=== PATIENT | male | born 1985 | race Caucasian/White ===

== ENCOUNTER 2016-07-20 09:31 | Emergency (ER) | payer OTHER ==
[2016-07-20 09:39] VITALS: RESP 18
--- NOTE | 2016-07-20 10:06 | ED ---
General Adult HPI - General Chief complaint: Overdose Stated complaint: poss overdose Time Seen by Provider: 07/20/16 09:50 Source: patient, EMS, RN notes reviewed Mode of arrival: EMS Limitations: no limitations - History of Present Illness Initial comments: 30-year-old male present emergency department via EMS from urgent care. Patient was sent over here for evaluation for possible as all overdose on over- the-counter medications or possible coating of overdose. Patient states that he 's been sick over the last few days taken multiple [id number] medications in which she states that it is maximum strength cold and flu foot is unsure what brand. Patient states he may have been taking prescription medications studies also not sure. Patient states he has a history of asthma does take medications for that. Patient states she's had sinus congestion, low-grade fever and cough. Patient states he does feel foggy and just feels off at this time. Patient denies illicit drug use. Patient denies any intention to harm himself or harm any other people at this time. Patient denies any alcohol use. - Related Data Home Medications Medication Instructions Recorded Confirmed Cold & Flu Liquid (Unknown) 1 dose PO Q4H PRN 07/20/16 07/20/16 Nasal [place] (Unknown) 1 spray EA NOSTRIL DAILY PRN 07/20/16 07/20/16 Allergies Allergy/AdvReac Type Severity Reaction Status Date / Time No Known Allergies Allergy Verified 07/20/16 10:28 Review of Systems ROS Statement: Those systems with pertinent positive or pertinent negative responses have been documented in the HPI. ROS Other: All systems not noted in ROS Statement are negative. Past Medical History Past Medical History: No Reported History History of Any Multi-Drug Resistant Organisms: None Reported Past Surgical History: No Surgical Hx Reported, Orthopedic Surgery Past Psychological History: ADD/ADHD Smoking Status: Current every day smoker Past Alcohol Use History: Occasional Past Drug Use History: None Reported General Exam Limitations: no limitations General appearance: alert, in no apparent distress Head exam: Present: atraumatic, normocephalic, normal inspection Eye exam: Present: normal appearance, PERRL, EOMI. Absent: scleral icterus, conjunctival injection, periorbital swelling ENT exam: Present: normal exam, normal oropharynx, mucous membranes moist, TM's normal bilaterally, normal external ear exam Neck exam: Present: normal inspection, full ROM. Absent: tenderness, meningismus, lymphadenopathy Respiratory exam: Present: normal lung sounds bilaterally. Absent: respiratory distress, wheezes, rales, rhonchi, stridor Cardiovascular Exam: Present: regular rate, normal rhythm, normal heart sounds. Absent: systolic murmur, diastolic murmur, rubs, gallop, clicks GI/Abdominal exam: Present: soft, normal bowel sounds. Absent: distended, tenderness, guarding, rebound, rigid Neurological exam: Present: alert, oriented X3, CN II-XII intact Skin exam: Present: warm, dry, intact, normal color. Absent: rash Course Vital Signs 07/20/16 09:34 Temperature 98.0 F Pulse Rate 95 Respiratory 18 Rate Blood Pressure 134/81 O2 Sat by Pulse 95 Oximetry EKG Findings - EKG Comments: EKG Findings:: EKG performed at 9:44 normal sinus rhythm with a rate of 94, MT interval 142, QRS duration 76, QT/QTC 336/420 Medical Decision Making - Medical Decision Making 30-year-old male presented for possible medication overdose. Patient lab work within the last. Patient did test positive for influenza A and methamphetamines on his urine drug screen. Patient denies any illicit drug use. Patient is awake alert and oriented 3. Patient does have a runny. Patient is able to family difficulty. Patient will be discharged. Patient's is advised to increase his fluid intake and to [id number] medication use at this time other then acetaminophen ibuprofen as directed. - Lab Data Result diagrams: 07/20/16 09:46 07/20/16 09:46 Lab Results 07/20/16 07/20/16 07/20/16 Range/Units 09:46 09:46 09:46 WBC 6.6 (3.8-10.6) k/uL RBC 5.48 (4.30-5.90) m/uL Hgb 16.4 (13.0-17.5) gm/dL Hct 48.4 (39.0-53.0) % MCV 88.3 (80.0-100.0) fL MCH 29.8 (25.0-35.0) pg MCHC 33.8 (31.0-37.0) g/dL RDW 13.0 (11.5-15.5) % Plt Count 143 L (150-450) k/uL Neutrophils % 73 % Lymphocytes % 15 % Monocytes % 9 % Eosinophils % 1 % Basophils % 0 % Neutrophils # 4.8 (1.3-7.7) k/uL Lymphocytes # 1.0 (1.0-4.8) k/uL Monocytes # 0.6 (0-1.0) k/uL Eosinophils # 0.0 (0-0.7) k/uL Basophils # 0.0 (0-0.2) k/uL PT 11.4 (9.0-12.0) sec INR 1.1 (<1.1) APTT 29.2 (22.0-30.0) sec Sodium 142 (137-145) mmol/L Potassium 3.8 (3.5-5.1) mmol/L Chloride 106 (98-107) mmol/L Carbon Dioxide 25 (22-30) mmol/L Anion Gap 11 mmol/L BUN 8 L (9-20) mg/dL Creatinine 0.82 (0.66-1.25) mg/dL Est GFR (MDRD) Af Amer >60 (>60 ml/min/1.73 sqM) Est GFR (MDRD) Non-Af >60 (>60 ml/min/1.73 sqM) Glucose 102 H (74-99) mg/dL Calcium 9.4 (8.4-10.2) mg/dL Magnesium 1.8 (1.6-2.3) mg/dL Total Bilirubin 0.5 (0.2-1.3) mg/dL AST 29 (17-59) U/L ALT 60 (21-72) U/L Alkaline Phosphatase 77 (38-126) U/L Creatine Kinase 166 (55-170) U/L Total Protein 7.0 (6.3-8.2) g/dL Albumin 4.3 (3.5-5.0) g/dL Urine Opiates Screen (NotDetected) Ur Oxycodone Screen (NotDetected) Urine Methadone Screen (NotDetected) Ur Propoxyphene Screen (NotDetected) Acetaminophen <10.0 ug/mL Ur Barbiturates Screen (NotDetected) U Tricyclic Antidepress (NotDetected) Ur Phencyclidine Scrn (NotDetected) Ur Amphetamines Screen (NotDetected) U Methamphetamines Scrn (NotDetected) U Benzodiazepines Scrn (NotDetected) Urine Cocaine Screen (NotDetected) U Marijuana (THC) Screen (NotDetected) Serum Alcohol <10 mg/dL Influenza Type A RNA (Not Detectd) Influenza Type B (PCR) (Not Detectd) 07/20/16 07/20/16 Range/Units 10:05 11:45 WBC (3.8-10.6) k/uL RBC (4.30-5.90) m/uL Hgb (13.0-17.5) gm/dL Hct (39.0-53.0) % MCV (80.0-100.0) fL MCH (25.0-35.0) pg MCHC (31.0-37.0) g/dL RDW (11.5-15.5) % Plt Count (150-450) k/uL Neutrophils % % Lymphocytes % % Monocytes % % Eosinophils % % Basophils % % Neutrophils # (1.3-7.7) k/uL Lymphocytes # (1.0-4.8) k/uL Monocytes # (0-1.0) k/uL Eosinophils # (0-0.7) k/uL Basophils # (0-0.2) k/uL PT (9.0-12.0) sec INR (<1.1) APTT (22.0-30.0) sec Sodium (137-145) mmol/L Potassium (3.5-5.1) mmol/L Chloride (98-107) mmol/L Carbon Dioxide (22-30) mmol/L Anion Gap mmol/L BUN (9-20) mg/dL Creatinine (0.66-1.25) mg/dL Est GFR (MDRD) Af Amer (>60 ml/min/1.73 sqM) Est GFR (MDRD) Non-Af (>60 ml/min/1.73 sqM) Glucose (74-99) mg/dL Calcium (8.4-10.2) mg/dL Magnesium (1.6-2.3) mg/dL Total Bilirubin (0.2-1.3) mg/dL AST (17-59) U/L ALT (21-72) U/L Alkaline Phosphatase (38-126) U/L Creatine Kinase (55-170) U/L Total Protein (6.3-8.2) g/dL Albumin (3.5-5.0) g/dL Urine Opiates Screen Not Detected (NotDetected) Ur Oxycodone Screen Not Detected (NotDetected) Urine Methadone Screen Not Detected (NotDetected) Ur Propoxyphene Screen Not Detected (NotDetected) Acetaminophen ug/mL Ur Barbiturates Screen Not Detected (NotDetected) U Tricyclic Antidepress Not Detected (NotDetected) Ur Phencyclidine Scrn Not Detected (NotDetected) Ur Amphetamines Screen Not Detected (NotDetected) U Methamphetamines Scrn Detected H (NotDetected) U Benzodiazepines Scrn Not Detected (NotDetected) Urine Cocaine Screen Not Detected (NotDetected) U Marijuana (THC) Screen Not Detected (NotDetected) Serum Alcohol mg/dL Influenza Type A RNA Detected A (Not Detectd) Influenza Type B (PCR) Not Detected (Not Detectd) Disposition Clinical Impression: Influenza A, Methamphetamine use Disposition: HOME SELF-CARE Condition: Stable Instructions: Influenza (ED) Additional Instructions: Please return to the Emergency Department if symptoms worsen or any other concerns. Time of Disposition: 12:40
[2016-07-20 10:15] LABS: Basophils % (A) 0 %; CH 30.7; CHCM 34.9; Eosinophils % (A) 1 %; HCT 48.4 % (39.0-53.0); HDW 2.28; HGB 16.4 gm/dL (13.0-17.5); Luc # (Auto) 0.14; Luc % (Auto) 2; Lymphocytes % (A) 15 %; MCH 29.8 pg (25.0-35.0); MCHC 33.8 g/dL (31.0-37.0); MCV 88.3 fL (80.0-100.0); Mean Platelet Volume 7.6; Monocytes # (A) 0.6 k/uL (0-1.0); Monocytes % (A) 9 %; Neutrophils # (A) 4.8 k/uL (1.3-7.7); Neutrophils % (A) 73 %; RBC 5.48 m/uL (4.30-5.90); WBC 6.6 k/uL (3.8-10.6); WBC (Perox) 6.94
--- NOTE | 2016-07-20 10:26 | XR ---
EXAMINATION TYPE: XR chest 2V DATE OF EXAM: 07/20/2016 10:21 AM COMPARISON: NONE HISTORY: Chest congestion and cough. TECHNIQUE: Frontal and lateral views of the chest are obtained. FINDINGS: There is central perihilar peribronchial cuffing. There is no suspicious peripheral focal air space opacity, pleural effusion, or pneumothorax seen. The cardiac silhouette size is within nor mal limits. The osseous structures are intact. IMPRESSION: Central perihilar peribronchial cuffing is consistent with reactive airway disease possi elly from a viral bronchiolitis.
[2016-07-20 10:34] LABS: INR 1.1 (<1.1); Partial Thromboplastin Time 29.2 sec (22.0-30.0); Prothrombin Time 11.4 sec (9.0-12.0)
[2016-07-20 10:47] LABS: ALT 60 U/L (21-72); AST 29 U/L (17-59); Acetaminophen <10.0 ug/mL; Alcohol <10 mg/dL; Alkaline Phosphatase 77 U/L (38-126); Anion Gap 11 mmol/L; Blood Urea Nitrogen 8 mg/dL (9-20); Calcium 9.4 mg/dL (8.4-10.2); Carbon Dioxide 25 mmol/L (22-30); Chloride 106 mmol/L (98-107); Creatine Kinase 166 U/L (55-170); Glucose 102 mg/dL (74-99); Magnesium 1.8 mg/dL (1.6-2.3); Non-African American GFR(MDRD) >60 (>60 ml/min/1.73 sqM); Potassium 3.8 mmol/L (3.5-5.1); Sodium 142 mmol/L (137-145); Total Bilirubin 0.5 mg/dL (0.2-1.3)
[2016-07-20 13:01] VITALS: BP 132/69; PULSE 79; TEMP 98.4
== END 2016-07-20 13:00 | disposition home or self-care (01) ==
LOC: EC 09:31
DX: J11.1 Influenza due to unidentified influenza virus with other respiratory manifestations (principal); F15.90 Other stimulant use, unspecified, uncomplicated; F17.200 Nicotine dependence, unspecified, uncomplicated
CPT/HCPCS: 36415; 71020; 80053; 80306; 80320; 82550; 83520; 83735; 85025; 85610; 85730; 87502; 93005; 99285

== ENCOUNTER 2016-08-08 13:35 | Inpatient (IN) | payer MEDICAID, OTHER ==
--- NOTE | 2016-08-08 13:58 | ED ---
General Adult HPI - General Chief complaint: Psychiatric Symptoms Stated complaint: Mental Health Eval Time Seen by Provider: 08/08/16 13:41 Source: patient, RN notes reviewed, old records reviewed Mode of arrival: ambulatory Limitations: no limitations - History of Present Illness Initial comments: This is a 30-year-old male the ER for evaluation. This patient presents for evaluation of a couple psychiatric complaints, hearing voices today and that is in his ears. Patient has history of psychiatric illness, and has had disagreements with different counselors and psychiatrist he has seen. Patient is currently off all psychiatric medications nonstructural call. Patient does function is slightly recent has a job and has been going well for him. Patient denies thoughts of homicide or suicide - Related Data Home Medications Medication Instructions Recorded Confirmed No Known Home Medications [No 08/08/16 08/08/16 Known Home Medications] Allergies Allergy/AdvReac Type Severity Reaction Status Date / Time No Known Allergies Allergy Verified 08/08/16 13:49 Review of Systems ROS Statement: Those systems with pertinent positive or pertinent negative responses have been documented in the HPI. ROS Other: All systems not noted in ROS Statement are negative. Past Medical History Past Medical History: No Reported History History of Any Multi-Drug Resistant Organisms: None Reported Past Surgical History: No Surgical Hx Reported, Orthopedic Surgery Past Psychological History: ADD/ADHD Smoking Status: Current every day smoker Past Alcohol Use History: Occasional Past Drug Use History: None Reported General Exam Limitations: no limitations General appearance: alert, in no apparent distress, anxious Head exam: Present: atraumatic, normocephalic, normal inspection Eye exam: Present: normal appearance, PERRL, EOMI. Absent: scleral icterus, conjunctival injection, periorbital swelling ENT exam: Present: normal exam, mucous membranes moist Neck exam: Present: normal inspection. Absent: tenderness, meningismus, lymphadenopathy Respiratory exam: Present: normal lung sounds bilaterally. Absent: respiratory distress, wheezes, rales, rhonchi, stridor Cardiovascular Exam: Present: regular rate, normal rhythm, normal heart sounds. Absent: systolic murmur, diastolic murmur, rubs, gallop, clicks GI/Abdominal exam: Present: soft, normal bowel sounds. Absent: distended, tenderness, guarding, rebound, rigid Extremities exam: Present: normal inspection, full ROM, normal capillary refill. Absent: tenderness, pedal edema, joint swelling, calf tenderness Back exam: Present: normal inspection Neurological exam: Present: alert, oriented X3, CN II-XII intact Psychiatric exam: Present: normal affect, normal mood Skin exam: Present: warm, dry, intact, normal color. Absent: rash Course Vital Signs 08/08/16 13:37 Temperature 98.0 F Pulse Rate 84 Respiratory 20 Rate Blood Pressure 150/73 O2 Sat by Pulse 98 Oximetry - Reevaluation(s) Reevaluation #1: 08/08/16 13:58 medically clear, will have psychiatric evaluation Medical Decision Making - Medical Decision Making 30 male seen and evaluated by psychiatry, psychiatry believes patient is acutely schizophrenic, voices are telling him to hurt himself and others. Patient will be admitted for psychiatric evaluation and treatment Disposition Clinical Impression: Chronic schizophrenia Disposition: TRANSFER TO PSYCH HOSP/UNIT Condition: Good Referrals: Young Fleming MD [Primary Care Provider] - 1-2 days
[2016-08-08] MEDS ORDERED: LORazepam 2 MG/ML SYRINGE IM PRN (16:44)
[2016-08-08] MEDS ORDERED: LORazepam 1 MG TAB PO PRN (16:44)
[2016-08-08] MEDS ORDERED: MAGNESIUM HYDROXIDE 2,400 MG/10 ML CUP PO PRN (16:52)
[2016-08-08] MEDS ORDERED: MAG HYDROX/AL HYDROX/SIMETH 30 ML CUP PO PRN (16:53)
[2016-08-08] MEDS ORDERED: ZIPRASIDONE 20 MG VIAL IM PRN (16:55)
[2016-08-08] MEDS: NICOTINE 14MG/24HR PATCH TRANSDERM SCH (17:39)
[2016-08-09 00:12] LABS: Amorphous Sediment,Urine Rare /hpf; Appearance,Urine Cloudy (Clear); Bilirubin,Urine Negative (Negative); Glucose,Urine (UA) Negative (Negative); Ketones,Urine Negative (Negative); Leukocyte Esterase,Urine Negative (Negative); Nitrite,Urine Negative (Negative); Particle Count 34416; Protein,Urine Negative (Negative); Specific Gravity,Urine 1.011 (1.001-1.035); UA Billing (MACRO vs. MICRO) MICRO; Urobilinogen,Urine <2.0 mg/dL (<2.0)
[2016-08-09] MEDS: NICOTINE 14MG/24HR PATCH TRANSDERM SCH (09:38)
--- NOTE | 2016-08-09 17:58 | HP ---
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 Patient presented to the mental health unit through the emergency room with a petition for psychosis. HISTORY OF PRESENT ILLNESS: Patient stated that he has been struggling with trouble sleeping at night, has been having frequent anger outbursts for the last 2 years, does believe that "the government is watching me and harassing me for no reason." He stated that he has been hearing noises in his ears like "just ringing in my ears, but it is constant." Patient was brought with a petition completed by his mother, Katy Shen. According to the allegation on the petition, she stated that the patient has psychiatric illness and he was at [facility] and discharged on Seroquel, but he stopped his psychotropic medication. He has been refusing to go to see a counselor or psychiatrist; he has been having a lot of anger outbursts; he has thrown a dresser around his room. He did make a couple of statements saying that he would kill himself and get over it. She stated that he has been not sleeping for a couple of weeks. The voices have been making him angry and acting in very aggressive ways. A couple of days he kicked out a window with his foot and he punched a mirror causing an injury requiring 4 or 5 stitches in his right hand. He bought a ticket to go to [place], and when he went there he did not have any plan and little money. He does not believe that he needs to be on any psych medication. When I asked the patient about his medication, he did admit that he has a lot of anger outbursts, and it has been getting worse for the last 2 months because "everywhere I go the [employer] is just watching me." Patient stated that he is frustrated also because he has been not able to maintain any job for the last year. He did move from one job to another; he had at least 4 or 5 different jobs over the last year. Patient endorses poor sleep, poor appetite. He denied any current suicidal ideation, but he was very preoccupied and seemed to be responding to internal stimuli. PAST PSYCHIATRIC HISTORY: Two years ago he was admitted at [facility] for 10 days; it was court-ordered, according to him, because "I was hearing a lot of voices and they put me on Seroquel." Patient stated that he does not believe to be on any psych medication and he decided to stop the Seroquel. He did go to a couple of sessions for counseling, but he got into an argument with them because "I don't believe I am incompetent or mentally it." PAST SUICIDAL ATTEMPT: He denied any past suicidal attempt; however, he did admit that recently he injured his right wrist and it did require a couple of stitches, as he hit the mirror and he injured himself. FAMILY HISTORY OF PSYCHIATRIC ILLNESS: Patient is not aware of any mental illness in the family. MEDICAL HISTORY: There is no acute medical problem. ALLERGIES: THERE IS NO KNOWN ALLERGY. HOME MEDICATIONS: None. VITAL SIGNS AT THE TIME OF THE ADMISSION: Temperature 98.0, pulse rate 84, respiration 20, blood pressure 150/73. Urine analysis is negative for bacteria. It is cloudy, but it is negative for leukocyte esterase. SOCIAL HISTORY: Patient has a younger sister. He stated that he was in private school until 9th grade because "I was diagnosed with ADD and I was on stimulants." Then he was moved from private school to public school, and he stated he did have difficulty adjusting to public school. 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 He has never been in a relationship except a very brief relationship at age 22 or 23. As I mentioned before, it seems that he never has been able to maintain any job for more than a couple of months. He has been living with his parent. He denied any history of physical or sexual abuse. He has been spending most of his time playing video games or fishing on his own. There is no friendship, no social life. MENTAL STATUS EXAMINATION: Patient is a male who appears his stated age. He is dressed in his own clothing. Hygiene and grooming are adequate. Poor eye contact. He was looking to the wall. A lot of halting and blocking. It seemed he was responding to internal cues. Thought process is tangential. He endorses a lot of persecutory delusions, hearing voices, but there is no command in nature. He reports no suicidal or homicidal ideation, but he did admit that he has anger outbursts and he recently injured his right hand. Affect is constricted. He does not appear manic or hypomanic, but he appears severely psychotic with insight and judgment totally impaired. COGNITIVE FUNCTION: Patient was not able to participate in the mini-mental status due to psychotic features. INTELLECTUAL FUNCTION: Average. STRENGTHS: Patient has a very good support system. WEAKNESSES: Chronic mental illness and poor compliance with medication, with no insight for the need for treatment. IMPRESSION: 1. Schizoaffective disorder; rule out schizophrenia, paranoid type. 2. History of attention deficit disorder. 3. Cluster C personality disorder. 4. Psychosocial dysfunction due to psychosis and poor compliance with medication. PLAN: The patient was admitted to the mental health unit. I will complete a clinical certificate. I recommend inpatient and outpatient treatment to be sure that he will be compliant with medication. I will start him on Invega oral and will titrate it to eliminate all the psychotic features. After court hearing I will switch it to Invega injection. Patient will participate in group therapy, activity therapy as tolerated. Will request a routine medical consultation. Social Work will meet with the patient to complete a psychosocial assessment and to discuss post-discharge planning. Length of stay 5 to 7 days. MTDD
--- NOTE | 2016-08-09 18:58 | CONS ---
DATE OF CONSULTATION: CHIEF COMPLAINT: Acute psychosis. HISTORY OF PRESENT ILLNESS: This gentleman was brought into the hospital after he apparently felt symptoms of fitz. It is not clear as to exactly what happened. As far as history can be obtained, he is not on any medication. REVIEW OF SYSTEMS: He denies any headaches, chest pain, shortness of breath, abdominal pain, vomiting, diarrhea, jaundice, hepatitis, renal disease, diabetes, etc. Past medical history, family history, personal and social histories are unremarkable and noncontributory otherwise. ALLERGIES: He is NOT ALLERGIC TO ANY MEDICATION. He is not taking any medication that we are aware of. PHYSICAL EXAMINATION: Blood pressure 148/88, pulse 60, respiratory rate 16. He is afebrile. In general he appeared to be in no acute distress. Skin color is normal. Skin is warm and dry. Lymph nodes are not enlarged. Head, ears, eyes, nose, mouth and throat were normal. Neck veins were not distended. Thyroid is not enlarged. Chest is clear. Cardiac exam is normal. The abdomen is soft and nontender. Extremities are normal. Neurologically he seems to be intact. IMPRESSION: 1. Acute psychosis. 2. Nicotine abuse. RECOMMENDATIONS: None.
[2016-08-09] MEDS: PALIPERIDONE 6 MG TAB.ER.24 PO SCH (21:37)
[2016-08-10] MEDS: NICOTINE 14MG/24HR PATCH TRANSDERM SCH (09:11)
--- NOTE | 2016-08-10 09:54 | P.PN ---
Progress Note - Text Interval history: The patient was seen for follow-up ,guarded ,evasive , most of his answers are "YES ,NO or not really ",seems responding to internal cues , denies any sleeping or appetite problems ,stated that he does not need any medication because "I AM NOT INSANE" ACCORDING TO NURSING STAFF :patient refused ti take his Invega ,no insight to his illness ,please refer to nurse note: ""pt given a copy of the 2nd cert. pt told that if he had any questions to come and talk with staff. tech came up and stated," Pt said that someone just came in and placed it on his bed." Dresser Tender went out and pt was standing in the hallway and pt was told that telegraphic typewriter mechanic was the one that handed pt the copy of the 2nd cert. pt stated that he did not agree with the cert about he is schizophrenic and paranoid. pt was then asked if he hears voices and pt stated, " You just want me to live with my mom the rest of my life!" telegraphic typewriter mechanic asked pt if he see electricity. pt then stated," Yeah, I don't like how I am being shocked down there, I have done nothing to anyone." pt asked about that comment and pt threw his arms up in the air and stated as he was walking away," Your insane." Initialized on 08/09/16 16:01 - END OF NOTE Mental status exam: The patient is alert he seated calmly. He is wearing same clothing ,poor grooming ,avoiding eyes contact ,speech is non spontaneous ,one word answer ,responding to internal stimuli ,halting and blocking ,suspicious , paranoia,denies any suicidal or homicidal ideation ,insight and judgment impaired Plan: Waiting for court hearing to start medication. We will continue to monitor him for safety and encourage his participation in the milieu and provide reality orientation when possible. Vital signs reviewed.
[2016-08-10] MEDS: PALIPERIDONE 6 MG TAB.ER.24 PO SCH (20:12)
[2016-08-11] MEDS: NICOTINE 14MG/24HR PATCH TRANSDERM SCH (08:24)
--- NOTE | 2016-08-11 08:53 | P.PN ---
Progress Note - Text Interval history: The patient was seen for follow-up ,guarded ,evasive ,brought court paper with him and stated that he does not agree that I am not schizophrenic ,I do not need any psychotropic medication "then started talking about being watched by government and "There is camera all over this place , extra electricity damaging my brain ",then started talking about having flu- like symptoms:IYER ,ears aches and congestion ,somatic preoccupied PER NURSING STAFF: Refusing his Invega ,slept 6 hours,participating in groups Vitals signs :WNL Mental status exam: The patient is alert he seated calmly. He is wearing same clothing ,poor grooming ,avoiding eyes contact ,speech is non spontaneous, responding to internal stimuli ,halting and blocking ,suspicious ,paranoia, denies any suicidal or homicidal ideation ,insight and judgment impaired Plan: Waiting for court hearing to start medication. We will continue to monitor him for safety and encourage his participation in the milieu and provide reality orientation when possible.
[2016-08-11] MEDS: LORATADINE-PSEUDOEPH 5-120 MG 1 EACH TAB.ER.12H PO PRN (10:45)
[2016-08-11 11:05] LABS: Basophils % (A) 0 %; CH 30.3; CHCM 33.7; Eosinophils % (A) 1 %; HCT 51.2 % (39.0-53.0); HDW 2.38; HGB 16.3 gm/dL (13.0-17.5); Luc # (Auto) 0.13; Luc % (Auto) 2; Lymphocytes # (A) 1.9 k/uL (1.0-4.8); Lymphocytes % (A) 31 %; MCH 28.7 pg (25.0-35.0); MCHC 31.9 g/dL (31.0-37.0); MCV 90.1 fL (80.0-100.0); Mean Platelet Volume 7.6; Monocytes # (A) 0.3 k/uL (0-1.0); Monocytes % (A) 5 %; Neutrophils # (A) 3.8 k/uL (1.3-7.7); Neutrophils % (A) 62 %; RBC 5.69 m/uL (4.30-5.90); WBC 6.1 k/uL (3.8-10.6)
[2016-08-11] MEDS: PALIPERIDONE 6 MG TAB.ER.24 PO SCH (21:19)
[2016-08-11] MEDS: ACETAMINOPHEN TAB 325 MG TAB PO PRN (21:21)
[2016-08-12] MEDS: NICOTINE 14MG/24HR PATCH TRANSDERM SCH (08:26)
[2016-08-12] MEDS: LORATADINE-PSEUDOEPH 5-120 MG 1 EACH TAB.ER.12H PO PRN (10:49)
[2016-08-12] MEDS: ACETAMINOPHEN TAB 325 MG TAB PO PRN (10:49)
--- NOTE | 2016-08-12 16:33 | P.PN ---
Progress Note - Text SUBJECTIVE: I reviewed the medical record and interviewed Mr. Cosme. He is a 30 -year-old male who has history of schizophrenia. He presented to the unit involuntarily with increasing psychotic symptoms. He expressed his desire to "go home". He denied the need for inpatient treatment or treatment, as he puts it, "psychedelic medications." He understands that he has a probate hearing for involuntary hospitalization on 08/16/2015. He denied feeling frightened or scared. He admitted to "occasionally hearing voices." He talked about feeling as though he were and "i-robot" where his thoughts are controlled and broadcasted. He denied problems with sleep or appetite. He declined my recommendation for an antipsychotic medication. She complains of past side effects to antipsychotics including sedation. OBJECTIVE: He presented as a casually groomed 30-year-old male who was pleasant on approach. He was sitting comfortably that he had his bed in a dark room. He appeared guarded and internally preoccupied. He maintained eye contact and appeared to attend to the interview. He had no distinguishing features or prominent physical abnormalities. He had a flat facial expression. He was alert and oriented to person, place and time. He showed psychomotor retardation but no abnormal involuntary movements. His speech was not spontaneous with decreased rhythm and volume. He had no articulation difficulties. His affect was flat. He denied suicidal ideation or wishes. He denied homicidal ideation. He expects feelings of hopelessness and helplessness in regard to her discussion of thought disturbances. He did not express ideas reference or paranoid ideation but appeared guarded and suspicious. His thinking was concrete and associations were not fully coherent or logical. However, he did not express perseveration, neologisms or thought blocking. He described occasional "forces" and at times appeared to be scanning the room as though he were responding to internal stimuli. ASSESSMENT: He has a history of schizophrenia and appears acutely psychotic with auditory hallucinations and thought disturbances. He also has marked negative symptoms including apathy and withdrawal. PLAN: Continue to encourage compliance with paliperidone 6 mg daily. Continue Geodon 20 mg IM twice a day and/or lorazepam 1 mg IM/by mouth every 8 hours when necessary for agitation or acute psychosis. Begin Invega Sustenna if he receives an involuntary treatment order from the probate hearing. Encourage participation in therapeutic groups and activities as tolerated. Evaluate clinical status response to treatment on a daily basis.
[2016-08-12] MEDS: PALIPERIDONE 6 MG TAB.ER.24 PO SCH (20:54)
[2016-08-13] MEDS: LORATADINE-PSEUDOEPH 5-120 MG 1 EACH TAB.ER.12H PO PRN (13:17)
--- NOTE | 2016-08-13 15:17 | P.PN ---
Progress Note - Text SUBJECTIVE: I reviewed the medical record and interviewed Mr. Cosme. He is a 30 -year-old male who has history of schizophrenia. He denied experiencing auditory hallucinations. He denied that he feels as though he were a robot. We talked about the thought disturbances. He was puzzled as to the nature of these experiences. He described an experience where he felt that "other people" knew in advance what he was about to do or say. He asks to for assistance with finding an apartment after she leaves the hospital and a medical letter so that he may return to work. He took the 6 mg dose of paliperidone this morning. OBJECTIVE: He presented as a casually groomed 30-year-old male who was pleasant on approach. He appeared less guarded than yesterday but continues to appear internally preoccupied. He maintained eye contact and appeared to attend to the interview. He had no distinguishing features or prominent physical abnormalities. He had a flat facial expression. He was alert and oriented to person, place and time. He showed psychomotor retardation but no abnormal involuntary movements. His speech was spontaneous with decreased rhythm and volume. He had no articulation difficulties. His affect was flat. He denied suicidal ideation or wishes. He denied homicidal ideation. He expects feelings of hopelessness and helplessness in regard to her discussion of thought disturbances. He did not express ideas reference or paranoid ideation but appeared guarded and suspicious. His thinking was concrete and associations were not fully coherent or logical. He did not express neologisms or thought blocking. He denied current auditory hallucinations and did not appear to be responding to internal stimuli ASSESSMENT: He is reporting a absence of auditory hallucinations and thought disturbances. He has marked negative symptoms including apathy and withdrawal. PLAN: Encourage compliance with paliperidone 6 mg daily. Continue Geodon 20 mg IM twice a day and/or lorazepam 1 mg IM/by mouth every 8 hours when necessary for agitation or acute psychosis. Begin Invega Sustenna if he receives an involuntary treatment [facility]. Encourage participation in therapeutic groups and activities as tolerated. Evaluate clinical status response to treatment on a daily basis.
[2016-08-13] MEDS: ACETAMINOPHEN TAB 325 MG TAB PO PRN (16:51)
[2016-08-13] MEDS: PALIPERIDONE 6 MG TAB.ER.24 PO SCH (21:38)
[2016-08-14] MEDS: NICOTINE 14MG/24HR PATCH TRANSDERM SCH (08:07)
--- NOTE | 2016-08-14 10:15 | P.PN ---
Progress Note - Text SUBJECTIVE He was seen in my office ,stating that he is going to court Tomorrow because ;" I AM NOT SCHIZOPHRENIC AND I DO NOT NEED ANTIPSYCHOTIC , THEY TOLD ME THAT INVEGA FOR DEPRESSION" He denied the need for inpatient treatment or treatment, denies need for long acting antipsychotic saying "YOU CAN NOT ORDER INJECTION , I AM NOT GUINE PIG ,,YOU ARE TRING TO CHANGE MY BRAIN ELECTRICITY" He admitted to auditory hallucinations and paranoia ,endorses persecutory delusion and history of anger outbursts He talked about feeling his thoughts are controlled and broadcasted. He denied problems with sleep or appetite. He declined my recommendation for an antipsychotic medication. He complains of past side effects to antipsychotics including sedation.:patient was on SEROQUEL OBJECTIVE: He appeared guarded and internally preoccupied. He maintained eye contact and appeared to attend to the interview. He had no distinguishing features or prominent physical abnormalities. He had a flat facial expression. He was alert and oriented to person, place and time. He showed psychomotor retardation but no abnormal involuntary movements. His speech was not spontaneous with decreased rhythm and volume. He had no articulation difficulties. His affect was flat. He denied suicidal ideation or wishes. He denied homicidal ideation. he express paranoid ideation ,was guarded and suspicious. His thinking was concrete and associations were not fully coherent or logical. He at times appeared to be scanning the room as though he were responding to internal stimuli. PLAN: Continue to encourage compliance with paliperidone 6 mg daily. Begin Invega Sustenna if he receives an involuntary treatment order from the probate hearing. Encourage participation in therapeutic groups and activities as tolerated. Evaluate clinical status response to treatment on a daily basis.
[2016-08-14] MEDS: PALIPERIDONE 6 MG TAB.ER.24 PO SCH (20:00)
[2016-08-15 06:03] VITALS: RESP 16
[2016-08-15] MEDS: NICOTINE 14MG/24HR PATCH TRANSDERM SCH (08:22)
--- NOTE | 2016-08-15 11:04 | P.PN ---
Progress Note - Text SUBJECTIVE: He expressed his desire to "go home"after court hearing ,stated that he has been compliant with oral INVEGA last 3 days and "I HAVE THE RIGHT TO REFUSE INJECTION IF I AM TAKING ORAL MED",discussed with him past history of poor compliance and patient rationalized it saying "I HAD BAD SIDE EFFECT FROM SEROQUEL",patient is still ruminating about his diagnosis and wants to be sure that "I AM NOT SCHIZOPHRENIC ", OBJECTIVE: He presented as a casually groomed 30-year-old male who was pleasant on approach. He was sitting comfortably that he had his bed in a dark room. He appeared guarded and evasive He maintained eye contact and appeared to attend to the interview. He had no distinguishing features or prominent physical abnormalities. He had a flat facial expression. He was alert and oriented to person, place and time. He showed psychomotor retardation but no abnormal involuntary movements. His speech was not spontaneous with decreased rhythm and volume. He had no articulation difficulties. His affect was flat. He denied suicidal ideation or wishes. He denied homicidal ideation He did not express ideas reference or paranoid ideation but appeared guarded .His thinking was concrete and associations were not fully coherent or logical. However, he did not express perseveration, neologisms or thought blocking. He described occasional "forces " and at times appeared to be scanning the room as though he were responding to internal stimuli. PLAN: Continue to encourage compliance with paliperidone [address] hearing today at 3 PM ,family meeting tomorrow
[2016-08-15] MEDS: ACETAMINOPHEN TAB 325 MG TAB PO PRN (15:18)
[2016-08-15] MEDS: PALIPERIDONE 6 MG TAB.ER.24 PO SCH (21:32)
[2016-08-15] MEDS: LORATADINE-PSEUDOEPH 5-120 MG 1 EACH TAB.ER.12H PO PRN (21:59)
[2016-08-16 06:43] VITALS: BP 126/65; PULSE 97; TEMP 97.8
[2016-08-16] MEDS ORDERED: PALIPERIDONE IM 234 MG/1.5 ML SYG IM STA (07:52)
[2016-08-16] MEDS: NICOTINE 14MG/24HR PATCH TRANSDERM SCH (08:41)
--- NOTE | 2016-08-16 10:25 | DS ---
DATE OF ADMISSION: 08/08/2016 DATE OF DISCHARGE: 08/16/2016 CONSULT PHYSICIAN: Rickey. CONSULTING PROVIDER: Dr. Young Fleming. CONSULT REASON: For medical management. Do you want consulting provider notified? Was already notified. DISCHARGE DIAGNOSES: 1. Schizoaffective disorder, depressed versus schizophrenia, paranoid type. 2. Schizotypal personality disorder. 3. Poor compliance with oral medication. BRIEF SUMMARY OF THE ADMISSION NOTE: The patient was admitted to the mental health unit from the emergency room for psychosis and delusion. Patient was admitted on involuntary basis. Please refer to complete history and physical examination dictated on August 09. SUMMARY OF THE HOSPITAL COURSE: Patient was admitted on involuntary basis. We did have complete lab workup was within normal limits. Urine drug screen is negative. I did start him on Invega 6 mg daily. He refused to take any medication ruminating about not having any mental illness and the demanding every day to be discharged. Patient was attending to group therapy; however, he was withdrawn isolating himself, very passive in the group, blunted affect with concrete thinking, very vague and evasive in his presentation, having low energy and apathy. Patient had his court hearing on August 15 and they did recommend inpatient and outpatient treatment for 90 days in addition to start long acting antipsychotic medication. Patient was not happy with the injections saying that he is scared of needles, but he did agree after a lot of reassurance. Patient did agree to take oral Invega 4 days prior to his discharge, when I told him that oral Invega needs to be in his system for at least 2 weeks to work. Throughout his hospitalization he did not show any aggressive or combative behavior. He has been very withdrawn on his own. No peer interaction. Patient has a family meeting with his mother with whom he is living today at 3:00. THE MENTAL STATUS EXAMINATION AT THE TIME OF THE DISCHARGE: Patient presented as casually groomed, male who was pleasant on approach. He appears less guarded than the first day of admission but he continued to appear internally preoccupied, but he denied any suicidal or homicide ideation. He denied any wish. He denied any feeling of hopeless or helpless. He was able to maintain good eye contact. His affect is very flat. He is alert, oriented to person, place and time. He showed psychomotor retardation, but no abnormal involuntary movement. He did not express any idea of reference or delusion thinking, but he appear guarded, evasive and suspicious. He denied having any auditory or visual hallucination. His thinking was concrete and association was not fully coherent. Patient did not appear to be responding to any internal stimuli. His insight and judgment are slightly improving. There is no verbal or physical aggression observed throughout his hospitalization. PLAN: 1. The patient will be discharged from the mental health unit today to return home. Following his family support meeting at 3 p.m. 2. Patient to continue on oral Invega 6 mg at bedtime for 2 weeks. 3. Patient was given his first injection of Invega at 234 mg IM today August 16. His next injection is due to September 15. Patient is aware that he is on court order for outpatient treatment and he has to be compliant with his medication. The patient denied any hopeless feeling, denied any suicidal ideation, does not have access to any firearms. There is no imminent safety risk and he is appropriate for transition to the outpatient care. Patient condition at the time of the discharge, stable.
== END 2016-08-16 16:06 | disposition home or self-care (01) | DRG 885 ==
LOC: EC 13:35 → 3MHU 16:49
PROVIDERS: ADMIT Psychiatry & Neurology Psychiatry; ATTEND Psychiatry & Neurology Psychiatry
DX: F25.9 Schizoaffective disorder, unspecified (principal); F20.0 Paranoid schizophrenia; F21 Schizotypal disorder; F60.89 Other specific personality disorders; Z91.14 Patient's other noncompliance with medication regimen; F90.9 Attention-deficit hyperactivity disorder, unspecified type; F17.200 Nicotine dependence, unspecified, uncomplicated; Z79.899 Other long term (current) drug therapy
CPT/HCPCS: 80306; 81001; 82075; 85025; 99285

== ENCOUNTER 2016-09-10 16:13 | Emergency (ER) | payer OTHER ==
--- NOTE | 2016-09-10 18:49 | ED ---
Psych HPI - General Source: patient, RN notes reviewed Mode of arrival: ambulatory Limitations: no limitations <Johnny Rivero - Last Filed: 09/10/16 18:47> <Logan Eli - Last Filed: 09/10/16 20:16> - General Chief Complaint: Psychiatric Symptoms Stated Complaint: MENTAL HEALTH Time Seen by Provider: 09/10/16 18:30 - History of Present Illness Initial Comments: 30-year-old male presents emergency department with family for psychiatric evaluation. Patient was admitted to [facility] a few weeks ago and was given and regular injection. Patient's states over the last few days sees been increasing paranoid, having increased anxiety and panic attacks. Patient states that he is doing well initially after injection but states that he feels he is having some her symptoms. Patient denies any illicit drug use or alcohol use. Patient denies any homicidal or suicidal threats. Patient does see [facility] and is scheduled for another injection this upcoming week. Families concern as he is very paranoid, having severe anxiety. (Johnny Rivero) - Related Data Home Medications Medication Instructions Recorded Confirmed Paliperidone IM [Invega Sustenna] 234 mg IM QMONTH 08/16/16 09/10/16 Ibuprofen [Motrin] 600 mg PO Q6HR PRN 09/10/16 09/10/16 Loratadine-Pseudoeph 5-120 mg 1 tab PO Q12HR PRN 09/10/16 09/10/16 [Claritin-D 12 Hour] Allergies Allergy/AdvReac Type Severity Reaction Status Date / Time No Known Allergies Allergy Verified 09/10/16 19:05 Review of Systems ROS Other: All systems not noted in ROS Statement are negative. <Johnny Rivero - Last Filed: 09/10/16 18:47> ROS Other: All systems not noted in ROS Statement are negative. <Logan Eli - Last Filed: 09/10/16 20:16> ROS Statement: Those systems with pertinent positive or pertinent negative responses have been documented in the HPI. Past Medical History Past Medical History: No Reported History History of Any Multi-Drug Resistant Organisms: None Reported Past Surgical History: No Surgical Hx Reported, Orthopedic Surgery Past Psychological History: ADD/ADHD, Schizoaffective Disorder, Schizophrenia Smoking Status: Current every day smoker Past Alcohol Use History: Occasional Past Drug Use History: None Reported <Johnny Rivero - Last Filed: 09/10/16 18:47> General Exam Limitations: no limitations General appearance: alert, in no apparent distress Head exam: Present: atraumatic, normocephalic, normal inspection Eye exam: Present: normal appearance, PERRL, EOMI. Absent: scleral icterus, conjunctival injection, periorbital swelling ENT exam: Present: normal exam, normal oropharynx, mucous membranes moist, TM's normal bilaterally Neck exam: Present: normal inspection, full ROM. Absent: tenderness, meningismus, lymphadenopathy Respiratory exam: Present: normal lung sounds bilaterally. Absent: respiratory distress, wheezes, rales, rhonchi, stridor Cardiovascular Exam: Present: regular rate, normal rhythm, normal heart sounds. Absent: systolic murmur, diastolic murmur, rubs, gallop, clicks Neurological exam: Present: alert, oriented X3, CN II-XII intact Psychiatric exam: Present: flat affect, other (Paranoid) Skin exam: Present: warm, dry, intact, normal color. Absent: rash <Johnny Rivero - Last Filed: 09/10/16 18:47> Medical Decision Making <Johnny Rivero - Last Filed: 09/10/16 18:47> <Logan Eli - Last Filed: 09/10/16 20:16> - Medical Decision Making The patient was evaluated by the psychiatric nurse she spoke with the psychiatrist. The plan at this size for the patient to receive a shot of (09, 20/30 4 mg IM. This worked well last month when he got it is due within the next 24-48 hours. The patient will be discharged home to the care of family and follow-up tomorrow with [facility]. Dr. Eli (Logan Eli) - Lab Data Lab Results 09/10/16 Range/Units 18:46 Urine Opiates Screen Not Detected (NotDetected) Ur Oxycodone Screen Not Detected (NotDetected) Urine Methadone Screen Not Detected (NotDetected) Ur Propoxyphene Screen Not Detected (NotDetected) Ur Barbiturates Screen Not Detected (NotDetected) U Tricyclic Antidepress Not Detected (NotDetected) Ur Phencyclidine Scrn Not Detected (NotDetected) Ur Amphetamines Screen Not Detected (NotDetected) U Methamphetamines Scrn Not Detected (NotDetected) U Benzodiazepines Scrn Detected H (NotDetected) Urine Cocaine Screen Not Detected (NotDetected) U Marijuana (THC) Screen Not Detected (NotDetected) Disposition <Johnny Rivero - Last Filed: 09/10/16 18:47> Time of Disposition: 20:16 <Logan Eli - Last Filed: 09/10/16 20:16> Clinical Impression: Chronic schizophrenia Disposition: HOME SELF-CARE Condition: Stable Instructions: Schizophrenia (ED) Additional Instructions: Follow-up tomorrow with [facility]. Return emergency room as needed
[2016-09-10] MEDS ORDERED: PALIPERIDONE IM 234 MG/1.5 ML SYG IM STA (20:14)
[2016-09-10 21:08] VITALS: BP 133/78; PULSE 78; RESP 18; TEMP 97
== END 2016-09-10 21:08 | disposition home or self-care (01) ==
LOC: EC 16:13
DX: F25.9 Schizoaffective disorder, unspecified (principal); F90.9 Attention-deficit hyperactivity disorder, unspecified type; F17.200 Nicotine dependence, unspecified, uncomplicated; Z79.899 Other long term (current) drug therapy
CPT/HCPCS: 82075; 80306; 99284; 96372; J2426

== ENCOUNTER → 2021-03-16 | Outpatient (CLI) | payer SELFPAY ==
--- NOTE | 2021-03-16 10:35 | XR ---
EXAMINATION TYPE: XR chest 2V DATE OF EXAM: 03/16/2021 COMPARISON: 07/20/2016 TECHNIQUE: PA and lateral views submitted. HISTORY: Shortness of FINDINGS: Patchy peripheral infiltrate is seen within the right midlung. Coarsened interstitium. Heart size sta ble. No pleural effusion or pneumothorax. Hypertrophic change of the spine. IMPRESSION: 1. Patchy right middle lobe infiltrate. Superimposed mild interstitial pneumonitis in the differentia l diagnosis
[2021-03-16 11:00] LABS: Basophils # (A) 0.1 k/uL (0-0.2); Basophils % (A) 0 %; Eosinophils # (A) 0.1 k/uL (0-0.7); Eosinophils % (A) 1 %; HCT 51.9 % (39.0-53.0); HGB 17.4 gm/dL (13.0-17.5); Lymphocytes % (A) 18 %; MCH 30.7 pg (25.0-35.0); MCHC 33.6 g/dL (31.0-37.0); MCV 91.3 fL (80.0-100.0); Mean Platelet Volume 8.4; Monocytes # (A) 0.4 k/uL (0-1.0); Monocytes % (A) 4 %; Neutrophils # (A) 8.9 k/uL (1.3-7.7); Neutrophils % (A) 77 %; Platelet Count 182 k/uL (150-450); RBC 5.69 m/uL (4.30-5.90); RDW 12.9 % (11.5-15.5); WBC 11.6 k/uL (3.8-10.6)
[2021-03-16 11:12] LABS: ALT 36 U/L (4-49); AST 25 U/L (17-59); African American GFR (CKD) >90 (>60 ml/min/1.73 sqM); Albumin 4.5 g/dL (3.5-5.0); Alkaline Phosphatase 93 U/L (38-126); Anion Gap 8 mmol/L; Blood Urea Nitrogen 12 mg/dL (9-20); Calcium 9.8 mg/dL (8.4-10.2); Carbon Dioxide 25 mmol/L (22-30); Chloride 107 mmol/L (98-107); Glucose 109 mg/dL (74-99); Non-African American GFR(CKD) >90 (>60 ml/min/1.73 sqM); Sodium 140 mmol/L (137-145); Total Bilirubin 0.5 mg/dL (0.2-1.3); Total Protein 7.1 g/dL (6.3-8.2)
[2021-03-16 19:14] LABS: LDL Cholesterol,Calculated 145.5 mg/dL (0.0-131.0)
== END | disposition home or self-care (01) ==
LOC: RADXRMAIN 09:50
PROVIDERS: ATTEND Family Medicine
DX: R91.8 Other nonspecific abnormal finding of lung field (principal); I10 Essential (primary) hypertension; B89 Unspecified parasitic disease; Z79.899 Other long term (current) drug therapy
CPT/HCPCS: 71046; 80053; 80061; 82785; 83036; 84443; 85025